=== PATIENT | male | born 1990 | race Caucasian/White ===

== ENCOUNTER 2021-06-12 07:31 | Emergency (ER) | payer BC, MEDICAID ==
[~2021-06-12] VITALS: Ht 182.9 cm; Wt 68.1 kg
[2021-06-12] MEDS: ONDANSETRON PF 4 MG/2 ML VIAL. IVP ONE ×2 (07:59→08:00)
[2021-06-12] MEDS ORDERED: IV NORMAL SALINE 1000ML BAG 1,000 ML IV ONE (08:00)
[2021-06-12] MEDS ORDERED: PANTOPRAZOLE IV PUSH 40 MG VIAL. IVP ONE (08:00)
--- NOTE | 2021-06-12 08:06 | RAD ---
XR ABDOMEN 1V INDICATION: llQ ABD PAIN COMPARISON: None. TECHNIQUE: Supine view of the abdomen was obtained. FINDINGS: Nonobstructive bowel gas pattern. No free air on this limited supine image. Mild colonic stool burden . No acute osseous abnormality. Pelvic phleboliths. IMPRESSION: Nonobstructive bowel gas pattern. Electronically signed by: Harsha Rivers MD (06/12/2021 8:04 AM) [id number]
[2021-06-12] MEDS ORDERED: PROCHLORPERAZINE 10 MG/2 ML VIAL. IVP ONE (08:15)
[2021-06-12] MEDS ORDERED: MORPHINE SULFATE 4 MG/ML INJ. IVP ONE (08:15)
[2021-06-12 08:23] LABS: BASO % 1 % (0-3); EOS # 0.1 x10^3/uL (0.0-0.7); EOS % 2 % (0-3); HEMATOCRIT 33.8 % (39.0-53.0); HEMOGLOBIN 10.8 g/dL (13.0-17.5); LYMPH % 15 % (24-48); MEAN CORPUSCULAR HEMOGLOBIN 25 pg (25-35); MEAN CORPUSCULAR HGB CONC 32 g/dL (31-37); MEAN CORPUSCULAR VOLUME 79 fL (79-100); MONO # 0.6 x10^3/uL (0.0-1.1); MONO % 9 % (0-9); NEUT % 74 % (31-73); PLATELET COUNT 208 x10^3/uL (140-400); RED BLOOD COUNT 4.28 x10^6/uL (4.30-5.70); RED CELL DISTRIBUTION WIDTH 17.5 % (11.5-14.5); WHITE BLOOD COUNT 6.7 x10^3/uL (4.0-11.0)
[2021-06-12 08:35] LABS: CALCIUM 9.2 mg/dL (8.5-10.1); CREATININE 0.9 mg/dL (0.7-1.3); GFR 97.2; POTASSIUM 3.5 mmol/L (3.5-5.1)
[2021-06-12 08:41] LABS: ALBUMIN 3.8 g/dL (3.4-5.0); ALBUMIN/GLOBULIN RATIO 1.1 (1.0-1.7); TOTAL BILIRUBIN 0.3 mg/dL (0.2-1.0); TOTAL PROTEIN 7.4 g/dL (6.4-8.2)
[2021-06-12 08:59] VITALS: BP 116/69
--- NOTE | 2021-06-12 09:44 | PHYS DOC ---
Past Medical History Additional Past Medical Histor: MYALGIA, NARCOLOPSY, PTSD, OCD Past Surgical History: Other Additional Past Surgical Histo: CYST R WRIST Smoking Status: Unknown if ever smoked Alcohol Use: None General Adult EDM: Chief Complaint: NAUSEA/VOMITING/DIARRHEA HPI: HPI: Patient is a 31 year old M with history of narcolepsy, cyclical vomiting syndrome as well as marijuana abuse who follows with a [facility] intern presents with nausea vomiting and left lower quadrant pain. Patient states that he is on promethazine orally as well as omeprazole, modafinil for narcolepsy. He used to take Zofran but states he gets too constipated with Zofran. He was seen in the emergency department last week as well as 1 month ago for the same issue. He was seen at [facility] I reviewed his records that he brings in with him. CT scan within normal limits. Presentation very similar. Labs within normal limits. Patient was given fluids as well as nausea medication and was discharged home to follow-up with his [facility] intern. Patient saw [facility] intern 2 days ago and was prescribed omeprazole. He has had scopes before without a conclusive cause. He is currently hemodynamically stable. He states that he has nausea and vomiting and called for an ambulance right after he started vomiting. He states this feels like his typical bouts of n/v. Review of Systems: Review of Systems: Constitutional: Denies fever or chills. [] Eyes: Denies change in visual acuity. [] HENT: Denies nasal congestion or sore throat. [] Respiratory: Denies cough or shortness of breath. [] Cardiovascular: Denies chest pain or edema. [] GI: + abdominal pain, nausea, vomiting, no bloody stools or diarrhea. [] : Denies dysuria. [] Musculoskeletal: Denies back pain or joint pain. [] Integument: Denies rash. [] Neurologic: Denies headache, focal weakness or sensory changes. [] Endocrine: Denies polyuria or polydipsia. [] Lymphatic: Denies swollen glands. [] Psychiatric: Denies depression or anxiety. [] Heart Score: C/O Chest Pain: No Risk Factors: Risk Factors: DM, Current or recent (<one month) smoker, HTN, HLP, family history of CAD, obesity. Risk Scores: Score 0 - 3: 2.5% MACE over next 6 weeks - Discharge Home Score 4 - 6: 20.3% MACE over next 6 weeks - Admit for Clinical Observation Score 7 - 10: 72.7% MACE over next 6 weeks - Early Invasive Strategies Current Medications: Current Medications Medications (Trade) Dose Ordered Sig/Elen Start Time Stop Time Status Last Admin Dose Admin Morphine Sulfate (Morphine Sulfate) 4 mg 1X ONCE 06/12/21 08:15 06/12/21 08:16 DC Ondansetron HCl (Zofran) 4 mg 1X ONCE 06/12/21 08:00 06/12/21 08:01 DC Pantoprazole Sodium (PROTONIX VIAL for IV PUSH) 40 mg 1X ONCE 06/12/21 08:00 06/12/21 08:03 DC 06/12/21 08:22 40 MG Prochlorperazine Edisylate (Compazine) 5 mg 1X ONCE 06/12/21 08:15 06/12/21 08:16 DC 06/12/21 08:19 5 MG Sodium Chloride 1,000 ml @ 1,000 mls/hr 1X ONCE 06/12/21 08:00 06/12/21 08:59 DC 06/12/21 07:59 1,000 MLS/HR Allergies: Allergies: Allergies Coded Allergies Type Severity Reaction Last Updated Verified No Known Drug Allergies 06/12/21 No Physical Exam: PE: Constitutional: Well developed, well nourished, no acute distress, non-toxic appearance. [] HENT: Normocephalic, atraumatic, bilateral external ears normal, oropharynx moist, no oral exudates, nose normal. [] Eyes: PERRLA, EOMI, conjunctiva normal, no discharge. [] Neck: Normal range of motion, no tenderness, supple, no stridor. [] Cardiovascular:Heart rate regular rhythm, no murmur [] Lungs & Thorax: Bilateral breath sounds clear to auscultation [] Abdomen: Bowel sounds normal, soft, no tenderness, no masses, no pulsatile masses. [] Skin: Warm, dry, no erythema, no rash. [] Back: No tenderness, no CVA tenderness. [] Extremities: No tenderness, no cyanosis, no clubbing, ROM intact, no edema. [] Neurologic: Alert and oriented X 3, normal motor function, normal sensory function, no focal deficits noted. [] Psychologic: Affect normal, judgement normal, mood normal. [] Current Patient Data: Labs: Laboratory Tests Test 06/12/21 07:35 White Blood Count 6.7 x10^3/uL (4.0-11.0) Red Blood Count 4.28 x10^6/uL (4.30-5.70) L Hemoglobin 10.8 g/dL (13.0-17.5) L Hematocrit 33.8 % (39.0-53.0) L Mean Corpuscular Volume 79 fL (79-100) Mean Corpuscular Hemoglobin 25 pg (25-35) Mean Corpuscular Hemoglobin Concent 32 g/dL (31-37) Red Cell Distribution Width 17.5 % (11.5-14.5) H Platelet Count 208 x10^3/uL (140-400) Neutrophils (%) (Auto) 74 % (31-73) H Lymphocytes (%) (Auto) 15 % (24-48) L Monocytes (%) (Auto) 9 % (0-9) Eosinophils (%) (Auto) 2 % (0-3) Basophils (%) (Auto) 1 % (0-3) Neutrophils # (Auto) 5.0 x10^3/uL (1.8-7.7) Lymphocytes # (Auto) 1.0 x10^3/uL (1.0-4.8) Monocytes # (Auto) 0.6 x10^3/uL (0.0-1.1) Eosinophils # (Auto) 0.1 x10^3/uL (0.0-0.7) Basophils # (Auto) 0.0 x10^3/uL (0.0-0.2) Sodium Level 143 mmol/L (136-145) Potassium Level 3.5 mmol/L (3.5-5.1) Chloride Level 105 mmol/L (98-107) Carbon Dioxide Level 32 mmol/L (21-32) Anion Gap 6 (6-14) Blood Urea Nitrogen 12 mg/dL (8-26) Creatinine 0.9 mg/dL (0.7-1.3) Estimated GFR (Cockcroft-Gault) 97.2 BUN/Creatinine Ratio 13 (6-20) Glucose Level 92 mg/dL (70-99) Calcium Level 9.2 mg/dL (8.5-10.1) Total Bilirubin 0.3 mg/dL (0.2-1.0) Aspartate Amino Transferase (AST) 25 U/L (15-37) Alanine Aminotransferase (ALT) 26 U/L (16-63) Alkaline Phosphatase 76 U/L (46-116) Total Protein 7.4 g/dL (6.4-8.2) Albumin 3.8 g/dL (3.4-5.0) Albumin/Globulin Ratio 1.1 (1.0-1.7) Lipase 90 U/L (73-393) Laboratory Tests 06/12/21 07:35 Laboratory Tests 06/12/21 07:35 Vital Signs: Vital Signs Date Time Temp Pulse Resp B/P (MAP) Pulse Ox O2 Delivery O2 Flow Rate FiO2 06/12/21 08:59 82 19 116/69 (85) 100 06/12/21 07:36 98.3 Room Air 98.3 EKG: EKG: [] Radiology/Procedures: Radiology/Procedures: PATIENT: WILFRIDO CAGE ACCOUNT: [id number] : 1990 LOCATION: ER AGE: 31 SEX: M EXAM STATUS: PRE ER ORD. PHYSICIAN: CARISA ARCOS MD REASON: llQ ABD PAIN PROCEDURE: KUB XR ABDOMEN 1V INDICATION: llQ ABD PAIN COMPARISON: None. TECHNIQUE: Supine view of the abdomen was obtained. FINDINGS: Nonobstructive bowel gas pattern. No free air on this limited supine image. Mild colonic stool burden. No acute osseous abnormality. Pelvic phleboliths. IMPRESSION: Nonobstructive bowel gas pattern. Electronically signed by: Harsha Rivers MD (06/12/2021 8:04 AM) [id number] Impression: Cyclical vomiting syndrome Course & Med Decision Making: Course & Med Decision Making Pertinent Labs and Imaging studies reviewed. (See chart for details) 31-year-old patient who presents with typical cyclical vomiting syndrome symptoms. He is a good historian with chart records. I reviewed them at bedside. He was given 1 dose of Compazine, 1 L of normal saline, labs were drawn. Labs were stable, no acute changes from his prior labs. They were within normal limits besides anemia. He recently saw gastroenterology who confirmed his diagnosis of cyclical vomiting syndrome. His KUB was benign. He had a bowel movement in the emergency department. Patient refused Zofran due to constipating effect. Patient states that he will go home and will use marijuana which helps him. He states that he refuses to accept a diagnosis of cannabis hyperemesis syndrome. Patient is hemodynamically stable. He states that he feels well to go home. He will continue on his medications and follow- up with gastroenterology. All questions answered. Brandon Disclaimer: Brandon Disclaimer: This electronic medical record was generated, in whole or in part, using a voice recognition dictation system. Departure Departure Impression: Primary Impression: Marijuana abuse Additional Impression: Cyclical vomiting Disposition: 01 HOME / SELF CARE / HOMELESS Condition: GOOD Referrals: UNKNOWN PCP NAME (PCP) Patient Instructions: Nausea and Vomiting, [id number] Additional Instructions: Please follow up with your GI doctor Continue your medications CARISA ARCOS MD Jun 12, 2021 09:44
== END 2021-06-12 09:30 | disposition home or self-care (01) ==
LOC: ER 07:31
DX: F12.10 Cannabis abuse, uncomplicated (principal); R11.15 Cyclical vomiting syndrome unrelated to migraine; F43.10 Post-traumatic stress disorder, unspecified; F42.9 Obsessive-compulsive disorder, unspecified
CPT/HCPCS: 36415; 74018; 80053; 83690; 85025; 96361; 96374; 96375; 99284; C9113; J0780; J7030; J2405